=== PATIENT | female | born 1940 | race Caucasian/White ===

== ENCOUNTER 2019-07-05 17:52 | Emergency (ER) | payer OTHER, MEDICAID ==
[~2019-07-05] VITALS: Ht 147.3 cm; Wt 49.9 kg
[2019-07-05 18:45] VITALS: BP 137/78
--- NOTE | 2019-07-05 19:56 | NUR ---
PT TO BED #7 BY JOSHUA
--- NOTE | 2019-07-05 19:58 | NUR ---
BIBA TO ER BED 7
--- NOTE | 2019-07-05 20:01 | NUR ---
PT MAEA FOR EPISODE OF TRYING TO LEAVE HER FACILITY. PT A&O X 1 TO PERSON. PT STATES "I WANT TO GO HOME TO MY FAMILY. I DO NOT WANT TO BE HERE." PT HAS HX OF DEMENTIA AND ALZHEIMERS AND DM. BLOOD SUGAR 140. NO COMPLAINTS AT THIS TIME. PT DENIES PAIN, PAIN LEVEL 0/10. SAFETY MEASURES IN PLACE. HOB ELEVATED, BEDRAILS UP X2, BED IN LOWEST POSITION. WAITING FOR ERMD TO EVALUATE PT.
[2019-07-05] MEDS ORDERED: NACL 0.9% 1,000 ML IV ONE (20:05)
[2019-07-05 20:23] LABS: BASOPHILS % (AUTO) 0.5 % (0.0-2.0); EOSINOPHILS % (AUTO) 0.8 % (0.0-4.0); HEMATOCRIT 39.4 % (36-48); HEMOGLOBIN 12.8 g/dL (12.0-16.0); LYMPHOCYTES # (AUTO) 1.9 K/uL (2.5-16.5); LYMPHOCYTES % (AUTO) 37.4 % (20.5-51.1); MEAN CORPUSCULAR HEMOGLOBIN 26 pg (27-31); MEAN CORPUSCULAR HGB CONC 32 g/dL (33-37); MEAN CORPUSCULAR VOLUME 78.7 fL (80-94); MONOCYTES # (AUTO) 0.4 K/uL (0.8-1.0); MONOCYTES % (AUTO) 8.5 % (1.7-9.3); NEUTROPHILS # (AUTO) 2.7 K/uL (1.8-7.7); NEUTROPHILS % (AUTO) 52.8 % (42.2-75.2); PLATELET COUNT (AUTO) 224 K/uL (140-450); RED BLOOD CELL COUNT(AUTO) 5.01 MIL/uL (4.20-5.40); RED CELL DISTRIBUTION WIDTH 16.1 % (11.6-13.7); WHITE BLOOD COUNT (AUTO) 5.1 K/uL (4.8-10.8)
--- NOTE | 2019-07-05 20:32 | NUR ---
XRAY AT BEDSIDE
[2019-07-05 20:38] LABS: ANION GAP 15.8 (8-16); CARBON DIOXIDE 25.1 mmol/L (21-32); CHLORIDE 98 mmol/L (98-107); CREATININE 0.9 mg/dL (0.6-1.3); GLUCOSE 128 mg/dL (74-106); POTASSIUM 3.9 mmol/L (3.5-5.1); SODIUM SERUM 135 mmol/L (136-145); UREA NITROGEN, BLOOD 9 mg/dL (7-18)
[2019-07-05 20:44] LABS: ASPARTATE AMINOTRANSFERASE 17 U/L (15-37); TOTAL BILIRUBIN 0.4 mg/dL (0.0-1.0)
--- NOTE | 2019-07-05 21:20 | NUR ---
PT AMBULATED TO RESTROOM
--- NOTE | 2019-07-05 21:51 | NUR ---
ERMD AT BEDSIDE
--- NOTE | 2019-07-05 22:06 | NUR ---
REPORT GIVEN TO KARLEY NGUYEN SKIN TANNER AT [facility]. ETA 1215.
--- NOTE | 2019-07-05 23:05 | NUR ---
PT RESTING IN BED WITH EYES CLOSED. VSS. WILL CONTINUE TO MONITOR.
[2019-07-05 23:56] VITALS: BP 115/47
--- NOTE | 2019-07-05 23:56 | NUR ---
Patient discharged with v/s stable. Written and verbal after care instructions given and explained. Patient verbalized understanding. Pt refused to sign discharge paperwork. Ambulatory with to [facility]. All questions addressed prior to discharge. Waiting for transport at this time.
--- NOTE | 2019-07-06 01:18 | NUR ---
CALLED [facility] FOR ETA. NEW ETA ABOUT 45 MIN
--- NOTE | 2019-07-06 01:21 | NUR ---
PT AMBULATED TO RESTROOM
--- NOTE | 2019-07-06 02:19 | NUR ---
Pt report given to [facility]. Transfer of care at this time.PT WILL RETURN TO [facility]. ETA IS 5 MIN. VSS PRIOR TO D/C
== END 2019-07-05 23:56 ==
LOC: MED 17:52
DX: G30.9 Alzheimer's disease, unspecified (principal); F02.80 Dementia in other diseases classified elsewhere, unspecified severity, without behavioral disturbance, psychotic disturbance, mood disturbance, and anxiety; R45.1 Restlessness and agitation; E11.9 Type 2 diabetes mellitus without complications
CPT/HCPCS: 36415; 71045; 80053; 81002; 84484; 85025; 93005; 99284; J7030

== ENCOUNTER 2019-07-10 18:13 | Inpatient (IN) | payer OTHER, MEDICAID ==
[~2019-07-10] VITALS: Ht 147.3 cm; Wt 53.5 kg
[2019-07-10] MEDS: NACL 0.9% 1,000 ML IV SCH (01:30)
[2019-07-10 20:20] VITALS: BP 145/71
--- NOTE | 2019-07-10 20:20 | NUR ---
RECEIVED PT FROM TRANSPORTATION SERVICE. PT CAME FROM [facility], DIRECT ADMISSION. PT CAME IN [facility], ABLE TO AMBULATED TO [facility] BED. NO S/S OF SOB NOTED. DX: ACUTE ENCEPHALOPATHY. VS CHECKED, MRSA SWAB DONE, BOARD UPDATED, BED IN LOW POSITION, CALL LIGHT WITHIN REACH.
[2019-07-10] MEDS ORDERED: LACT-2 (21:38)
[2019-07-10] MEDS ORDERED: DIT5 PO (21:38)
[2019-07-10] MEDS ORDERED: MIC5 PO (21:38)
[2019-07-10] MEDS ORDERED: METF850T PO (21:38)
[2019-07-10] MEDS ORDERED: INSU100I7 SQ (21:38)
[2019-07-10] MEDS ORDERED: DONE5TAB6 PO (21:38)
[2019-07-10] MEDS ORDERED: ACETAMINOPHEN 325 MG TAB PO PRN (21:40)
[2019-07-10] MEDS ORDERED: ONDANSETRON 4 MG/2 ML VIAL IM/IVP PRN (21:40)
[2019-07-10] MEDS ORDERED: MORPHINE SULFATE 2 MG/ML SYR IVP PRN (21:40)
[2019-07-10] MEDS ORDERED: DOCUSATE SODIUM 100 MG GELCAP PO PRN (21:40)
[2019-07-10] MEDS ORDERED: HYDROcodone/APAP 5/325 MG 1 TAB TAB PO PRN (21:40)
[2019-07-10] MEDS ORDERED: DEXTROSE 50% 50 ML SYR IVP PRN (22:25)
[2019-07-10] MEDS ORDERED: INSULIN LISPRO SLIDING SCALE 100 UNITS/ML VIAL SUBQ PRN (22:25)
[2019-07-10] MEDS ORDERED: INSULIN GLARGINE HUM REC ANLOG 5 UNIT SQ SCH (22:30)
--- NOTE | 2019-07-10 22:30 | NUR ---
PT LEFT ROOM WITH SCM-GL BY WHEELCHAIR FOR CHEST X RAY AND HEAD CT SCAN.
[2019-07-10 22:50] LABS: BASOPHILS % (AUTO) 0.5 % (0.0-2.0); EOSINOPHILS # (AUTO) 0.1 K/uL (0-0.4); EOSINOPHILS % (AUTO) 1.1 % (0.0-4.0); HEMATOCRIT 39.1 % (36-48); HEMOGLOBIN 12.7 g/dL (12.0-16.0); LYMPHOCYTES # (AUTO) 2.2 K/uL (2.5-16.5); LYMPHOCYTES % (AUTO) 42.2 % (20.5-51.1); MEAN CORPUSCULAR HEMOGLOBIN 26 pg (27-31); MEAN CORPUSCULAR HGB CONC 32 g/dL (33-37); MEAN CORPUSCULAR VOLUME 79.3 fL (80-94); MONOCYTES # (AUTO) 0.4 K/uL (0.8-1.0); MONOCYTES % (AUTO) 8.6 % (1.7-9.3); NEUTROPHILS # (AUTO) 2.5 K/uL (1.8-7.7); NEUTROPHILS % (AUTO) 47.6 % (42.2-75.2); PLATELET COUNT (AUTO) 227 K/uL (140-450); RED BLOOD CELL COUNT(AUTO) 4.92 MIL/uL (4.20-5.40); RED CELL DISTRIBUTION WIDTH 16.2 % (11.6-13.7); WHITE BLOOD COUNT (AUTO) 5.2 K/uL (4.8-10.8)
[2019-07-10 23:13] LABS: PROTHROMBIN TIME 10.2 secs (10.8-13.4)
[2019-07-10 23:15] LABS: ALBUMIN 4.2 g/dL (3.4-5.0); ANION GAP 13.5 (8-16); ASPARTATE AMINOTRANSFERASE 26 U/L (15-37); CARBON DIOXIDE 28.4 mmol/L (21-32); CHLORIDE 100 mmol/L (98-107); CHOL/HDL RATIO 4.6 (1-4.5); CREATININE 0.8 mg/dL (0.6-1.3); GLUCOSE 98 mg/dL (74-106); HDL CHOLESTEROL 61 mg/dL (40-60); LDL (CALC) 182 mg/dL (60-100); POTASSIUM 3.9 mmol/L (3.5-5.1); SODIUM SERUM 138 mmol/L (136-145); TOTAL BILIRUBIN 0.3 mg/dL (0.0-1.0); TRIGLYCERIDES 181 mg/dL (30-150); UREA NITROGEN, BLOOD 9 mg/dL (7-18)
--- NOTE | 2019-07-10 23:15 | NUR ---
PT CAME BACK FROM RAD DEPT. PT IN STABLE CONDITION.
[2019-07-10 23:23] LABS: MAGNESIUM 1.6 mg/dL (1.8-2.4); THYROID STIMULATING HORMONE 2.25 uIU/mL (0.34-3.74)
[2019-07-11] MEDS ORDERED: metFORMIN 850 MG TAB PO SCH (01:30)
[2019-07-11] MEDS ORDERED: MAGNESIUM OXIDE 400 MG TAB PO SCH (01:30)
[2019-07-11] MEDS ORDERED: DONEPEZIL 10 MG TAB PO SCH (01:30)
[2019-07-11] MEDS ORDERED: INSULIN LANTUS 100 UNITS/ML 10 ML VIAL SUBQ SCH (01:30)
[2019-07-11] MEDS ORDERED: OXYBUTYNIN 5 MG TAB PO SCH (01:30)
--- NOTE | 2019-07-11 01:45 | NUR ---
GIVEN ARICEPT, DITROPAN, AND MAG OX MD ORDERED. HELD METFORMIN AND LANTUS D/T DECREASED BS, 114. WILL CONTINUE TO MONITOR.
--- NOTE | 2019-07-11 03:56 | NUR ---
PT SLEEPING IN BED COMFORTABLY. NO ACUTE DISTRESS NOTED. WILL CONTINUE TO MONITOR.
--- NOTE | 2019-07-11 05:59 | NUR ---
PT WENT RESTROOM WITH IV RUNNING, IV CONNECTOR REMOVED AND BLOOD CAME FROM IV SITE. CLEAN PT AND IV SITE A. FLUSHED IV, IV STILL WORKING, NO LEAKING, NO PAIN, OR NO INFILTRATION NOTED. PT TOLERATED WELL. WILL CONTINUE TO MONITOR.
[2019-07-11] MEDS: BLOOD GLUCOSE MONITORING 1 DEV DEV FS SCH ×4 (06:21→21:58)
--- NOTE | 2019-07-11 06:25 | NUR ---
BS CHECKED, 77. NO INSULIN COVERAGE NEEDED. PT IN STABLE CONDITION.
--- NOTE | 2019-07-11 07:03 | NUR ---
RECEIVED REPORT FROM CONTACT LENS LATHE OPERATOR NURSE. PT AAOX2 TO PERSON AND PLACE. NO C/O PAIN AT THIS TIME. IV ON RT HAND 22 GA RUNNING IVF PER ORDER. PT IS AWARE TO RING MCCARTNEY AND NOTIFY NURSE WHEN GETTING OUT OF BED. RESPIRATIONS EVEN AND UNLABORED ON RA. ACTIVE BS, ABD SOFT. SKIN IS INTACT WARM TO TOUCH. REVIEWED POC WITH PT, PT WILL NEED REINFORCEMENT.
[2019-07-11 08:00] VITALS: BP 130/56
--- NOTE | 2019-07-11 08:27 | NUR ---
PATIENT HAS BEEN SCREENED AND CATEGORIZED MODERATE NUTRITION RISK. PATIENT WILL BE SEEN WITHIN 3-5 DAYS OF ADMISSION. 07/11/19 07/15/[address]
[2019-07-11 08:33] LABS: BASOPHILS % (AUTO) 0.9 % (0.0-2.0); EOSINOPHILS # (AUTO) 0.1 K/uL (0-0.4); EOSINOPHILS % (AUTO) 1.9 % (0.0-4.0); HEMATOCRIT 37.8 % (36-48); HEMOGLOBIN 12.4 g/dL (12.0-16.0); LYMPHOCYTES # (AUTO) 1.9 K/uL (2.5-16.5); LYMPHOCYTES % (AUTO) 41.8 % (20.5-51.1); MEAN CORPUSCULAR HEMOGLOBIN 26 pg (27-31); MEAN CORPUSCULAR HGB CONC 33 g/dL (33-37); MEAN CORPUSCULAR VOLUME 78.7 fL (80-94); MONOCYTES # (AUTO) 0.4 K/uL (0.8-1.0); MONOCYTES % (AUTO) 9.3 % (1.7-9.3); NEUTROPHILS # (AUTO) 2.1 K/uL (1.8-7.7); NEUTROPHILS % (AUTO) 46.1 % (42.2-75.2); PLATELET COUNT (AUTO) 224 K/uL (140-450); RED CELL DISTRIBUTION WIDTH 16.5 % (11.6-13.7); WHITE BLOOD COUNT (AUTO) 4.6 K/uL (4.8-10.8)
[2019-07-11 08:34] LABS: ANION GAP 14.8 (8-16); CARBON DIOXIDE 27.7 mmol/L (21-32); CHLORIDE 102 mmol/L (98-107); CREATININE 0.8 mg/dL (0.6-1.3); GLUCOSE 99 mg/dL (74-106); POTASSIUM 4.5 mmol/L (3.5-5.1); SODIUM SERUM 140 mmol/L (136-145); UREA NITROGEN, BLOOD 9 mg/dL (7-18)
[2019-07-11] MEDS: metFORMIN 850 MG TAB PO SCH ×2 (08:59→18:05)
[2019-07-11] MEDS: glyBURIDE 5 MG TAB PO SCH (09:00)
[2019-07-11] MEDS: LACTOBACILLUS RHAMNOSUS GG 1 EACH CAP PO SCH (09:05)
[2019-07-11] MEDS: ATORVASTATIN 20 MG TAB PO SCH (09:05)
[2019-07-11] MEDS: OXYBUTYNIN 5 MG TAB PO SCH ×2 (09:05→21:58)
[2019-07-11] MEDS: INSULIN LANTUS 100 UNITS/ML 10 ML VIAL SUBQ SCH (09:08)
--- NOTE | 2019-07-11 09:08 | NUR ---
PT GIVEN MORNING MEDICATIONS PER ORDER, VERBALIZED UNDERSTANDING OF INDICATIONS AND POTENTIAL SIDE EFFECTS OF EACH. PT HAS NO SIGNS OF DISTRESS AT THIS TIME.
--- NOTE | 2019-07-11 11:45 | NUR ---
BS CHECKED AT 67. PT AAOX2, NO CHANGES IN LOC. NO S/S OF HYPOGLYCEMIA. WILL CONTINUE TO MONITOR.
--- NOTE | 2019-07-11 13:00 | NUR ---
PT SITTING UP IN BED, HAVING LUNCH. PT HAS NO SIGNS OF DISTRESS AT THIS TIME.
[2019-07-11] MEDS ORDERED: MAG SULF 2000 MG/WATER PREMIX 50 ML IV SCH (14:00)
--- NOTE | 2019-07-11 14:12 | NUR ---
PT GIVEN IV MAGNESIUM FOR MAG LEVEL 1.7. PT IS AWARE OF INDICATIONS AND POTENTIAL SIDE EFFECTS OF MEDICATION. PT SHOWS SIGNS OF CONFUSION, PT ASKS SEVERAL TIMES WHAT HOSPITAL SHE IS IN. PT NOTIFIED THAT SHE IS IN [facility]. NO SIGNS OF DISTRESS AT THIS TIME.
--- NOTE | 2019-07-11 14:42 | NUR ---
PT GIVEN CREAM OF WHEAT PER REQUEST. PT HAS NO C/O PAIN AT THIS TIME. Addendum: 07/11/19 at 1447 by Pennie Medina RN CLARIFICATION: IGNORE NOTE ABOVE. WRONG PT.
[2019-07-11 16:00] VITALS: BP 130/67
--- NOTE | 2019-07-11 19:30 | NUR ---
ENDORSED PT TO COBOL MAINFRAME DEVELOPER NURSE. PT HAS NO SIGNS OF DISTRESS AT THIS TIME.
--- NOTE | 2019-07-11 19:30 | NUR ---
RECEIVED BEDSIDE REPORT FROM AM SHIFT RN ELISE, FOR PT'S CONTINUITY OF CARE. PT IS AWAKE, ALERT, SOMEWHAT CONFUSED, WITH NO COMPLAINS OF PAIN. PT IS ON ROOM AIR, HAS RIGHT HAND 22GA INFUSING WITH NS AT 60ML/HR, PT IS SWAZI SPEAKING. EXPLAINED TO PT DIRECTOR VIDEO ROUTINE, PT VERBALIZED UNDERSTANDING. BED IS ON LOW POSITION, SIDE RAILS ARE UP, CALL LIGHT IS WITHIN REACH. WILL MONITOR PT THROUGHOUT SHIFT.
[2019-07-11] MEDS: NACL 0.9% 1,000 ML IV SCH (19:33)
[2019-07-11] MEDS: DONEPEZIL 10 MG TAB PO SCH (21:58)
--- NOTE | 2019-07-11 21:58 | NUR ---
BLOOD GLUCOSE CHECKED AND CHARTED. GLUCOSE IS LOW, GAVE 3 CONTAINERS PO ORANGE JUICE WITH SUGAR. ADMINISTERED SCHEDULED PO, SUBQ, AND IV PUSH MEDICATIONS ORDERED. PT TOLERATED THEM WELL. WILL CONTINUE TO MONITOR PT.
--- NOTE | 2019-07-11 23:00 | NUR ---
BLOOD GLUCOSE RECHECKED - 132.
[2019-07-12] VITALS: BP 124/54
--- NOTE | 2019-07-12 00:15 | NUR ---
VS CHECKED AND CHARTED. PT DENIES ANY PAIN. WENT BACK TO SLEEP AFTER. WILL CONTINUE TO MONITOR.
--- NOTE | 2019-07-12 02:35 | NUR ---
MADE ROUNDS. PT LYING DOWN ASLEEP WITH NO SIGNS OF DISTRESS. WILL CONTINUE TO MONITOR PT.
--- NOTE | 2019-07-12 04:45 | NUR ---
RECEIVED REPORT FROM KARLEY TEMPLE FOR CONTINUITY OF CARE.
[2019-07-12 05:00] VITALS: BP 113/42
--- NOTE | 2019-07-12 05:00 | NUR ---
SEEN PT ASLEEP BUT EASILY AROUSABLE LYING ON HER LEFT SIDE. VITAL SIGNS CHECKED. PT DENIES ANY DISCOMFORT. CALL LIGHT W/IN REACH.
--- NOTE | 2019-07-12 06:35 | NUR ---
AWAKEN PT. BLOOD SUGAR CHECKED:87. NO COVERAGE NEEDED. PT DENIES ANY DISCOMFORT. IVF INFUSING WELL. WILL ENDORSE CARE TO DAYSHIFT NURSE.
[2019-07-12] MEDS: BLOOD GLUCOSE MONITORING 1 DEV DEV FS SCH ×4 (07:11→21:30)
--- NOTE | 2019-07-12 07:43 | NUR ---
RECEIVED BEDSIDE REPORT FROM VESSEL MANAGER RN. PT IS AAOX2, SOMEWHAT CONFUSED, WITH NO COMPLAINS OF PAIN. PT IS ON ROOM AIR, HAS RIGHT HAND 22GA INFUSING WITH NS AT 60ML/HR, PT IS GREEK SPEAKING. EXPLAINED TO PT DAY SHIFT ROUTINE, PT VERBALIZED UNDERSTANDING BUT WILL NEED REINFORCEMENT. BED IS ON LOW POSITION, 2 SIDE RAILS ARE UP, CALL LIGHT IS WITHIN REACH. WILL MONITOR PT THROUGHOUT SHIFT.
[2019-07-12 07:48] LABS: BASOPHILS % (AUTO) 0.7 % (0.0-2.0); EOSINOPHILS # (AUTO) 0.1 K/uL (0-0.4); EOSINOPHILS % (AUTO) 1.9 % (0.0-4.0); HEMATOCRIT 35.3 % (36-48); HEMOGLOBIN 11.5 g/dL (12.0-16.0); LYMPHOCYTES # (AUTO) 1.6 K/uL (2.5-16.5); LYMPHOCYTES % (AUTO) 36.8 % (20.5-51.1); MEAN CORPUSCULAR HEMOGLOBIN 26 pg (27-31); MEAN CORPUSCULAR HGB CONC 33 g/dL (33-37); MEAN CORPUSCULAR VOLUME 78.7 fL (80-94); MONOCYTES # (AUTO) 0.5 K/uL (0.8-1.0); MONOCYTES % (AUTO) 10.3 % (1.7-9.3); NEUTROPHILS # (AUTO) 2.2 K/uL (1.8-7.7); NEUTROPHILS % (AUTO) 50.3 % (42.2-75.2); PLATELET COUNT (AUTO) 176 K/uL (140-450); RED BLOOD CELL COUNT(AUTO) 4.49 MIL/uL (4.20-5.40); RED CELL DISTRIBUTION WIDTH 16.2 % (11.6-13.7); WHITE BLOOD COUNT (AUTO) 4.4 K/uL (4.8-10.8)
[2019-07-12 08:00] VITALS: BP 114/64
[2019-07-12 08:09] LABS: ANION GAP 12.3 (8-16); CARBON DIOXIDE 27.5 mmol/L (21-32); CHLORIDE 105 mmol/L (98-107); CREATININE 0.7 mg/dL (0.6-1.3); GLUCOSE 86 mg/dL (74-106); POTASSIUM 4.8 mmol/L (3.5-5.1); SODIUM SERUM 140 mmol/L (136-145); UREA NITROGEN, BLOOD 8 mg/dL (7-18)
[2019-07-12 08:26] LABS: CHOL/HDL RATIO 4.3 (1-4.5)
[2019-07-12] MEDS: INSULIN LANTUS 100 UNITS/ML 10 ML VIAL SUBQ SCH (09:00)
[2019-07-12] MEDS: ATORVASTATIN 20 MG TAB PO SCH (09:04)
[2019-07-12] MEDS: OXYBUTYNIN 5 MG TAB PO SCH ×2 (09:04→21:22)
[2019-07-12] MEDS: metFORMIN 850 MG TAB PO SCH ×2 (09:05→17:39)
[2019-07-12] MEDS: LACTOBACILLUS RHAMNOSUS GG 1 EACH CAP PO SCH (09:05)
[2019-07-12] MEDS: glyBURIDE 5 MG TAB PO SCH (09:05)
--- NOTE | 2019-07-12 09:12 | NUR ---
ADMINISTERED MORNING MEDS TO PT. PT TOLERATED THEM WELL. ALL NEEDS MET. WILL CONTINUE TO ROUND FREQUENTLY ON PT.
--- NOTE | 2019-07-12 11:34 | NUR ---
PT RESTING IN BED SITTING AT BEDSIDE CHAIR. ALL NEEDS MET. WILL CONTINUE TO ROUND FREQUENTLY ON PT. BED IN LOW POSITION, CALL LIGHT WITHIN REACH.
--- NOTE | 2019-07-12 14:23 | NUR ---
PT SITTING IN BED LOOKING OUT WINDOW SPEAKING TO HERSELF. ALL NEEDS MET. WILL CONTINUE TO ROUND FREQUENTLY ON PT.
--- NOTE | 2019-07-12 15:55 | NUR ---
PT SITTING IN BED. ALL NEEDS MET. WILL CONTINUE TO ROUND FREQUENTLY ON PT. BED IN LOW POSITION, CALL LIGHT WITHIN REACH.
[2019-07-12 16:00] VITALS: BP 138/72
--- NOTE | 2019-07-12 16:51 | NUR ---
P.T. NOTES D/C FROM P.T. AFTER TX, NURSING TO AMBULATE AD MARCIA. Addendum: 07/12/19 at 1653 by Marbella Reyes PT Amended: Links added.
--- NOTE | 2019-07-12 17:56 | NUR ---
PT RESTING IN BED SITTING AT BEDSIDE. WILL CONTINUE TO ROUND FREQUENTLY ON TP. SITTER 1:1
--- NOTE | 2019-07-12 19:22 | NUR ---
ENDORSED PT TO FINISHING OPERATOR FOR CONTINUITY OF CARE. PT IN STABLE CONDITION AT THIS TIME.
--- NOTE | 2019-07-12 19:25 | NUR ---
RECEIVED REPORT FROM DAY NURSE. PATIENT IS SITTING IN BED ON ROOM AIR, RIGHT HAND 22G, A&OX2, SKIN IS INTACT, IV FLUIDS INFUSING WELL ON THE RIGHT HAND, BED IN ON LOWEST POSITION, SIDE RAILS UP X2, BED ALARM WITHIN REACH, WILL CONTINUE TO MONITOR.
[2019-07-12] MEDS: NACL 0.9% 1,000 ML IV SCH (19:33)
[2019-07-12] MEDS: DONEPEZIL 10 MG TAB PO SCH (21:22)
--- NOTE | 2019-07-12 21:30 | NUR ---
BLOOD SUGAR WAS CHECKED RESULT 66. PT IT AWAKE,ALERT .PROVIDED WITH SOME SNACK. WILL CONTINUE TO MONITOR
--- NOTE | 2019-07-12 23:54 | NUR ---
RECHECKED THE BLOOD SUGAR AND RESULT IS 126. WILL CONTINUE TO MONITOR.
[2019-07-12 23:55] VITALS: BP 126/62
--- NOTE | 2019-07-13 01:00 | NUR ---
PT ASLEEP. NO S/S OF ANY DISCOMFORT NOTED. WILL CONTINUE TO MONITOR.
--- NOTE | 2019-07-13 02:29 | NUR ---
PATIENT IS SLEEPING, NO DISTRESS NOTED, BED ON LOW POSITION, CALL LIGHT WITHIN REACH, WILL CONTINUE TO MONITOR.
--- NOTE | 2019-07-13 04:00 | NUR ---
PT SLEEPING WELL. NO S/S OF ANY DISCOMFORT NOTED. WILL CONTINUE TO MONITOR.
--- NOTE | 2019-07-13 04:45 | NUR ---
PATIENT IS SLEEPING COMFORTABLY, NO COMPLAINTS OF PAIN, NO SIGNS OF DISTRESS NOTED, 1:1 SITTER, BED ON LOW POSITION, WILL CONTINUE TO MONITOR.
[2019-07-13] MEDS: BLOOD GLUCOSE MONITORING 1 DEV DEV FS SCH ×4 (06:00→20:50)
--- NOTE | 2019-07-13 07:20 | NUR ---
ENDORSED PATIENT TO DAY NURSE IN STABLE CONDITION FOR CONTINUITY OF CARE.
--- NOTE | 2019-07-13 07:24 | NUR ---
RECEIVED REPORT FROM BUYER GRAIN FOR CONTINUITY OF CARE FROM YESTERDAY. PT IN STABLE CONDITION AT THIS TIME. WILL CONTINUE TO ROUND FREQUENTLY ON PT. BED IN LOW POSITION, CALL LIGHT WITHIN REACH.
[2019-07-13 07:46] LABS: BASOPHILS % (AUTO) 0.6 % (0.0-2.0); EOSINOPHILS # (AUTO) 0.1 K/uL (0-0.4); EOSINOPHILS % (AUTO) 1.4 % (0.0-4.0); HEMATOCRIT 34.3 % (36-48); HEMOGLOBIN 11.2 g/dL (12.0-16.0); LYMPHOCYTES # (AUTO) 1.8 K/uL (2.5-16.5); LYMPHOCYTES % (AUTO) 42.3 % (20.5-51.1); MEAN CORPUSCULAR HEMOGLOBIN 26 pg (27-31); MEAN CORPUSCULAR HGB CONC 33 g/dL (33-37); MEAN CORPUSCULAR VOLUME 78.4 fL (80-94); MONOCYTES # (AUTO) 0.4 K/uL (0.8-1.0); MONOCYTES % (AUTO) 9.4 % (1.7-9.3); NEUTROPHILS % (AUTO) 46.3 % (42.2-75.2); PLATELET COUNT (AUTO) 198 K/uL (140-450); RED BLOOD CELL COUNT(AUTO) 4.38 MIL/uL (4.20-5.40); RED CELL DISTRIBUTION WIDTH 15.8 % (11.6-13.7); WHITE BLOOD COUNT (AUTO) 4.3 K/uL (4.8-10.8)
[2019-07-13 07:55] LABS: ANION GAP 12.7 (8-16); CARBON DIOXIDE 26.3 mmol/L (21-32); CHLORIDE 104 mmol/L (98-107); CREATININE 0.7 mg/dL (0.6-1.3); GLUCOSE 75 mg/dL (74-106); SODIUM SERUM 139 mmol/L (136-145); UREA NITROGEN, BLOOD 5 mg/dL (7-18)
[2019-07-13 08:05] VITALS: BP 122/65
[2019-07-13] MEDS: glyBURIDE 5 MG TAB PO SCH (09:18)
[2019-07-13] MEDS: ATORVASTATIN 20 MG TAB PO SCH (09:18)
[2019-07-13] MEDS: LACTOBACILLUS RHAMNOSUS GG 1 EACH CAP PO SCH (09:18)
[2019-07-13] MEDS: metFORMIN 850 MG TAB PO SCH ×2 (09:19→18:31)
[2019-07-13] MEDS: OXYBUTYNIN 5 MG TAB PO SCH ×2 (09:19→20:51)
[2019-07-13] MEDS: INSULIN LANTUS 100 UNITS/ML 10 ML VIAL SUBQ SCH (09:21)
--- NOTE | 2019-07-13 09:34 | NUR ---
ADMINISTERED MORNING MEDS TO PT. TP TOLERATED THEM WELL. WILL CONTINUE TO ROUND FREQUENTLY ON PT. BED IN LOW POSITION, CALL LIGHT WITHIN REACH.
--- NOTE | 2019-07-13 10:15 | NUR ---
RECEIVED A CALL FROM [facility] SPOKE WITH MARISEL STATED NO BED AVAILABLE.
--- NOTE | 2019-07-13 11:32 | NUR ---
FAXED TO JACE RENEE , [facility] AND [facility] WHICH HAVE LOCKED UNIT CM TO FOLLOW
--- NOTE | 2019-07-13 11:47 | NUR ---
PT RESTING IN BED. ALL NEEDS MET. WILL CONTINUE TO ROUND FREQUENTLY ON PT. BED IN LOW POSITION, CALL LIGHT WITHIN REACH.
[2019-07-13] MEDS ORDERED: LANTUS SUBQ (12:53)
[2019-07-13] MEDS ORDERED: ATOR20TA40 PO (12:53)
[2019-07-13] MEDS ORDERED: DIT5 PO (12:53)
--- NOTE | 2019-07-13 13:47 | NUR ---
PT RESTING IN ROOM WITH FRIEND AT BEDSIDE. WILL CONTINUE TO ROUND FREQUENTLY ON PT. BED IN LOW POSITION, CALL LIGHT WITHIN REACH.
--- NOTE | 2019-07-13 15:21 | NUR ---
RECEIVED A CALL FROM [facility]POKE WITH SCAR , ACCEPTED PATIENT BUT NO AVAILABLE BED TODAY AND BED WILL BE AVAILABLE TOMORROW CM TO FOLLOW
[2019-07-13 16:00] VITALS: BP 125/76
--- NOTE | 2019-07-13 17:09 | NUR ---
PT SITTING AT BEDSIDE CHAIR WATCHING TV AND EATING SUGAR FREE JELLO. ALL NEEDS MET. WILL CONTINUE TO ROUND FREQUENTLY ON PT. BED IN LOW POSITION, CALL LIGHT WITHIN REACH.
[2019-07-13] MEDS: NACL 0.9% 1,000 ML IV SCH (19:33)
--- NOTE | 2019-07-13 19:33 | NUR ---
ENDORSED PT TO CESSPOOL CLEANER FOR CONTINUITY OF CARE. PT IN STABLE CONDITION AT THIS TIME.
--- NOTE | 2019-07-13 19:34 | NUR ---
RECEIVED PATIENT FROM DAY NURSE FOR CONTINUITY OF CARE FROM YESTERDAY. PATIENT IS IN SITTING ON BEDSIDE CHAIR, AOX2, SKIN IS INTACT, IV ON RIGHT HAND 22G, PATENT AND INTACT, FLUIDS INFUSING, NO SIGNS OF DISTRESS NOTED, NO C/O PAIN, CALL LIGHT WITHIN REACH, WILL CONTINUE TO MONITOR.
--- NOTE | 2019-07-13 20:50 | NUR ---
BLOOD SUGAR WAS CHECKED RESULT 73. PT PROVIDED WITH SOME HS SNACK ABD ADDITIONAL APPLE JUICE. WILL CONTINUE TO MONITOR.
[2019-07-13] MEDS: DONEPEZIL 10 MG TAB PO SCH (20:51)
--- NOTE | 2019-07-13 22:30 | NUR ---
PT STILL AWAKE. TRYING TO GO AROUND THE ROOM,FIXING THE BED LINEN. ENCOURAGED TO GET BACK TO BED. ASSISTED .
[2019-07-14 00:30] VITALS: BP 110/58
--- NOTE | 2019-07-14 00:30 | NUR ---
VITAL SIGNS STABLE. NO C/O ANY DISCOMFORT/NOR PAIN NOTED.
--- NOTE | 2019-07-14 02:31 | NUR ---
PATIENT IS SLEEPING COMFORTABLY, NO SIGNS OF DISTRESS NOTED, 1:1 SITTER AT BEDSIDE, BED ON LOW POSITION, CALL LIGHT WITHIN REACH, WILL CONTINUE TO MONITOR.
--- NOTE | 2019-07-14 04:00 | NUR ---
MADE ROUNDS. PT SLEEPING WELL. NO S/S OF ANY DISCOMFORT NOTED.
[2019-07-14] MEDS: BLOOD GLUCOSE MONITORING 1 DEV DEV FS SCH ×4 (06:32→21:13)
--- NOTE | 2019-07-14 06:32 | NUR ---
BLOOD SUGAR AT 0544 WAS 64. PT WAS ASYMPTOMATIC . AWAKE AND ALERT. PROVIDED WITH APPLE JUICE AND CRACKERS. RECHECKED BLOOD SUGAR AT THIS TIME AND RESULT 149. WILL CONTINUE TO MONITOR.
--- NOTE | 2019-07-14 07:20 | NUR ---
ENDORSED PT IN STABLE CONDITION TO AM NURSE FOR CONTINUITY OF CARE.
--- NOTE | 2019-07-14 07:21 | NUR ---
RECEIVED ENDORSEMENT FROM ELECTRICAL SIGN WIRER NURSE. PATIENT IS AAOX2, LITHUANIAN SPEAKING. RESPIRATIONS ARE EVEN AND UNLABORED ON ROOM AIR. PATIENT DENIES ANY PAIN. RIGHT HAND 22G IV INTACT AND SL. PLAN OF CARE WAS REVIEWED WITH PATIENT, PATIENT VERBALIZED UNDERSTANDING. SAFETY MEASURES IN PLACE, CALL LIGHT WITHIN REACH.
[2019-07-14 08:00] VITALS: BP 104/51
[2019-07-14] MEDS: LACTOBACILLUS RHAMNOSUS GG 1 EACH CAP PO SCH (08:20)
[2019-07-14] MEDS: OXYBUTYNIN 5 MG TAB PO SCH ×2 (08:21→21:05)
[2019-07-14] MEDS: ATORVASTATIN 20 MG TAB PO SCH (08:21)
[2019-07-14] MEDS: metFORMIN 850 MG TAB PO SCH ×2 (08:21→17:32)
[2019-07-14] MEDS: glyBURIDE 5 MG TAB PO SCH (08:23)
[2019-07-14] MEDS: INSULIN LANTUS 100 UNITS/ML 10 ML VIAL SUBQ SCH (08:27)
--- NOTE | 2019-07-14 08:27 | NUR ---
ADMINISTERED SCHEDULED MEDICATIONS. PATIENT TOLERATED WELL. DENIES ANY PAIN. NO OTHER NEEDS AT THIS TIME.
--- NOTE | 2019-07-14 09:15 | NUR ---
PATIENT SITTING IN BED. DENIES ANY PAIN. NO SIGN OF DISTRESS NOTED. WILL CONTINUE TO MONITOR.
--- NOTE | 2019-07-14 10:00 | NUR ---
PER DR MARTIN , NOT TO TRANSFER TO [facility], BECAUSE HE IS NOT GOING TO [facility]. FAXED TO [facility], JENNIFER PENA , BOTH FACILITIES ARE NOT ACCEPTING PATIENT.
--- NOTE | 2019-07-14 10:55 | NUR ---
SW faxed clinicals to [facility] and [facility]. Chandrakant from [facility] stated that they would not be able to accommodate patient if she is a wanders. TYSON will follow up as needed.
--- NOTE | 2019-07-14 11:30 | NUR ---
CHECKED BS. PATIENT SITTING QUIETLY IN BED, DENIES ANY PAIN. NO OTHER NEEDS AT THIS TIME.
--- NOTE | 2019-07-14 13:43 | NUR ---
PATIENT REQUESTED A SANDWICH, STATES THAT WHAT WAS ON HER TRAY SHE CAN'T EAT DUE TO HER HIGH CHOLESTEROL. PROVIDED PATIENT A HAM SANDWICH. NO OTHER NEEDS AT THIS TIME.
--- NOTE | 2019-07-14 14:00 | NUR ---
I RECEIVED A CALL FROM [employer] SPOKE WITH CLOVIS STATED PATIENT IS WITH [facility] AND THE CARE NEEDS TO BE TRANSFERRED TO DR RAFAEL BURNS. CALLED DR MARTIN AND NOTIFIED AND CARE TRANSFERRED TO DR HALL.
--- NOTE | 2019-07-14 14:51 | NUR ---
CLOVIS CALLED AND REQUESTED ALL THE PAPER WORKS TO BE FAXED TO [phone]. FAXED ALL THE PAPER WORK FOR [facility] AND [facility].
--- NOTE | 2019-07-14 15:01 | NUR ---
PROVIDED PHONE AND CALLED [facility], PATIENTS FAMILY MEMBER, PER PATIENTS REQUEST. NO OTHER NEEDS AT THIS TIME, WILL CONTINUE TO MONITOR.
[2019-07-14 16:00] VITALS: BP 117/58
--- NOTE | 2019-07-14 17:04 | NUR ---
CLARIFIED THE INSURANCE WITH ADMITTING , ADELA SPOKE WITH THE [facility] CM ROBERT CALLED AND APOLOGIZE AND TRANSFER THE CARE TO DR MARTIN. NOTIFIED DR MARTIN THE SITUATION AND THE CARE IS TRANSFERRED TO DR MARTIN. NO ACCEPTING FACILITY AT THIS TIME.
--- NOTE | 2019-07-14 17:32 | NUR ---
ADMINISTERED SCHEDULED MEDICATION. PATIENT TOLERATED WELL. NO OTHER NEEDS AT THIS TIME.
--- NOTE | 2019-07-14 19:20 | NUR ---
ENDORSED TO DIRECTOR RETAIL BRAND DEVELOPMENT NURSE ELPIDIO FOR CONTINUITY OF CARE. PATIENT IS STABLE AT THIS TIME.
--- NOTE | 2019-07-14 19:21 | NUR ---
RECEIVED BEDSIDE REPORT FROM DAY SHIFT NURSE DREW RN, PT STABLE, NO DISTRESS NOTED, IV TO R HAND 22G, PATENT INTACT, PT REFUSED IVF, PT ON ROOM AIR, NO SOB NOTED, INITIAL ASSESSMENT DONE, ALL SAFETY PRECAUTION MET, CALL LIGHT WITHIN REACH, WILL CONTINUE TO MONITOR.
[2019-07-14] MEDS: NACL 0.9% 1,000 ML IV SCH (19:33)
[2019-07-14] MEDS: DONEPEZIL 10 MG TAB PO SCH (21:05)
--- NOTE | 2019-07-14 21:30 | NUR ---
DUE MEDICATION ADMINISTERED, PT TOLERATED WELL, NO DISTRES NOTED, CALL LIGHT WITHIN REACH, WILL CONTINUE TO MONITOR.
[2019-07-15] VITALS: BP 99/60
--- NOTE | 2019-07-15 00:02 | NUR ---
CHECKED ON PT, PT SLEEPING, V/S TAKEN, WNL, CALL LIGHT WITHIN REACH, WILL CONTINUE TO MONITOR.
--- NOTE | 2019-07-15 01:42 | NUR ---
PT SLEEPING, NO DISTRESS NOTED, CALL LIGHT WITHIN REACH, WILL CONTINUE TO MONITOR.
[2019-07-15] MEDS: BLOOD GLUCOSE MONITORING 1 DEV DEV FS SCH ×2 (06:29→11:31)
--- NOTE | 2019-07-15 06:30 | NUR ---
PATIENT REFUSED BLOOD SUGAR CHECK. SHE WANTS TO SLEEP RIGHT NOW.
--- NOTE | 2019-07-15 07:28 | NUR ---
ENDORSED PT TO DAY SHIFT NURSE PT RESTING, NO DISTRESS NOTED, CALL LIGHT WITHIN REACH.
--- NOTE | 2019-07-15 07:30 | NUR ---
RECEIVED ENDORSEMENT FROM TRANSIT AUTHORITY POLICE OFFICER NURSE. PATIENT IS AAOX2, HONDURAN SPEAKING. RESPIRATIONS ARE EVEN AND UNLABORED ON ROOM AIR. PATIENT DENIES ANY PAIN AT THIS TIME. RIGHT HAND 22G IV INTACT AND SL. PATIENT REFUSES TO HAVE FLUIDS. PLAN OF CARE WAS REVIEWED WITH PATIENT, PATIENT VERBALIZED UNDERSTANDING. SAFETY MEASURES IN PLACE, CALL LIGHT WITHIN REACH.
[2019-07-15 08:00] VITALS: BP 125/65
[2019-07-15] MEDS: INSULIN LANTUS 100 UNITS/ML 10 ML VIAL SUBQ SCH (08:49)
[2019-07-15] MEDS: ATORVASTATIN 20 MG TAB PO SCH (08:51)
[2019-07-15] MEDS: LACTOBACILLUS RHAMNOSUS GG 1 EACH CAP PO SCH (08:51)
[2019-07-15] MEDS: glyBURIDE 5 MG TAB PO SCH (08:51)
[2019-07-15] MEDS: metFORMIN 850 MG TAB PO SCH (08:51)
[2019-07-15] MEDS: OXYBUTYNIN 5 MG TAB PO SCH (08:52)
--- NOTE | 2019-07-15 08:53 | NUR ---
ADMINISTERED SCHEDULED MEDICATIONS. PATIENT TOLERATED WELL. NO OTHER NEEDS AT THIS TIME, WILL CONTINUE TO MONITOR.
--- NOTE | 2019-07-15 10:05 | NUR ---
PATIENT SITTING IN CHAIR QUIETLY. DENIES ANY PAIN. NO OTHER NEEDS AT THIS TIME.
[2019-07-15] MEDS ORDERED: DEXTROSE 50% 50 ML SYR IVP PRN (11:25)
[2019-07-15] MEDS ORDERED: INSULIN LISPRO SLIDING SCALE 100 UNITS/ML VIAL SUBQ PRN (11:25)
[2019-07-15] MEDS ORDERED: BLOOD GLUCOSE MONITORING 1 DEV DEV FS SCH (11:30)
--- NOTE | 2019-07-15 11:40 | NUR ---
PT IS ACCEPTING AT [facility] UNDER THE CARE OF DR BARNES ADDRESS [id number] [place] # TO GIVE REPORT [phone] [employer] STAFF MEMBER WILL MACHINE CAGE MAKER PT AT 1 PM NOTIFIED DREW CRANDALL
--- NOTE | 2019-07-15 12:15 | NUR ---
REPORT WAS GIVEN TO KARLEY SARMIENTO AT [facility].
--- NOTE | 2019-07-15 12:39 | NUR ---
WILL HOLD INSULIN. PATIENT REFUSING TO EAT. DISCHARGE INSTRUCTIONS WERE PROVIDED, PATIENT NEEDS REINFORCEMENT. 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 IV WAS REMOVED, CANNULA INTACT WITH MINIMAL BLEEDING. [facility], FAMILY MEMBER, WAS NOTIFIED AND PROVIDED CONTACT INFORMATION. PENDING TRANSPORT, NO OTHER NEEDS AT THIS TIME.
--- NOTE | 2019-07-15 14:20 | NUR ---
PATIENT WAS WHEELED OFF UNIT BY WHEELCHAIR ACCOMPANIED BY [employer]. ACCOMPANIED PATIENT TO VEHICLE. ID BAND WAS REMOVED. ALL BELONGINGS LEFT WITH PATIENT. PATIENT IS STABLE AT THIS TIME.
== END 2019-07-15 14:10 | DRG 56 ==
LOC: MTU 20:15
PROVIDERS: ADMIT General Practice; ATTEND General Practice
DX: G30.9 Alzheimer's disease, unspecified (principal); G93.41 Metabolic encephalopathy; D68.59 Other primary thrombophilia; F02.80 Dementia in other diseases classified elsewhere, unspecified severity, without behavioral disturbance, psychotic disturbance, mood disturbance, and anxiety; E11.9 Type 2 diabetes mellitus without complications; R32 Unspecified urinary incontinence; F29 Unspecified psychosis not due to a substance or known physiological condition; E78.5 Hyperlipidemia, unspecified; Z91.81 History of falling; Z98.891 History of uterine scar from previous surgery; Z79.899 Other long term (current) drug therapy; Z73.6 Limitation of activities due to disability
CPT/HCPCS: 36415; 70450; 71045; 80048; 80053; 82140; 82948; 83036; 83690; 83735; 83880; 84100; 84134; 84443; 84484; 85025; 85610; 85730; 87081; 87086; 93005; 93880; 97116; 97161-GP; 97530; J1644; J1815; J3475; J7030; Q0092